=== PATIENT | female | born 1955 | race Two or more races ===

== ENCOUNTER 2024-11-04 13:29 | Inpatient (IN) | payer OTHER ==
[~2024-11-04] VITALS: Ht 157.5 cm; Wt 74.8 kg
[2024-11-04] MEDS ORDERED: AMLODIPINE BESY10 MG PO (14:07)
[2024-11-04] MEDS ORDERED: ATORVASTATIN CA10 MG PO (14:07)
[2024-11-04] MEDS ORDERED: GABAPENTIN300 M2 PO (14:07)
--- NOTE | 2024-11-04 14:10 | NUR ---
PTE ALERTA Y ORIENTADA X3 REIFERE ASTMA, FEMA Y TOS. SE MIDEN S/V Y SE UBICA.
[2024-11-04] MEDS ORDERED: IPRATROPIUM BROMIDE 0.5 MG/2.5 ML AMPUL.NEB IH SCH (16:30)
[2024-11-04] MEDS ORDERED: CEFTRIAXONE SODIUM 1,000 MG VIAL IV ONE (16:30)
[2024-11-04] MEDS ORDERED: LEVALBUTEROL HCL 1.25 MG/3 ML SOLUTION IH SCH (16:30)
[2024-11-04] MEDS ORDERED: MAGNESIUM SULFATE IN WATER 2 GM/50 ML PIGGYBAG IV ONE (16:30)
[2024-11-04] MEDS ORDERED: METHYLPREDNISOLONE SOD SUCC 40 MG VIAL IV ONE (16:30)
[2024-11-04] MEDS ORDERED: FAMOtidine 10 MG/ML (4ML VIAL) IV ONE (16:30)
[2024-11-04] MEDS ORDERED: LEVALBUTEROL HCL 1.25 MG/3 ML SOLUTION IH ONE (16:46)
[2024-11-04] MEDS ORDERED: IPRATROPIUM BROMIDE 0.5 MG/2.5 ML AMPUL.NEB IH ONE (16:47)
[2024-11-04] MEDS ORDERED: METHYLPREDNISOLONE SOD SUCC 40 MG VIAL ONE (16:56)
[2024-11-04] MEDS ORDERED: FAMOTIDINE/PF 20 MG/2 ML VIAL ONE (16:57)
[2024-11-04] MEDS ORDERED: CEFTRIAXONE SODIUM 1,000 MG VIAL ONE (16:57)
[2024-11-04 17:13] LABS: ABG PH 7.476 (7.35-7.45); BICARBONATE 28.9 mmol/l (23-25); SaO2 95.9 %; Tco2 30.1 mmol/l
--- NOTE | 2024-11-04 17:24 | NUR ---
SE ORIENTA PTE SOBRE TX MEDICO EL CUAL REFIERE ENTENDER.SE LE EXTRAEN MUESTRAS BAJO MEDIDAS ASEPTICAS,SE CANALIZA Y SE ADMINISTRA MEDICAMENTOS JARET ORDEN MEDICA.SE NOTIFICAN ABG A MR SCHWARTZ.
[2024-11-04 18:11] LABS: HEMATOCRIT 37.6 % (36.0-45.00); HEMOGLOBIN 12.6 g/dL (12.0-15.00); MEAN CELL VOLUME 89.1 fL (80.00-100.00); MEAN CORPUSCULAR HEMOGLOBIN 29.8 pg (27.00-32.0); MEAN CORPUSCULAR HGB CONC 33.4 g/dl (32.0-36.0); PLATELET COUNT 485 K/uL (150-450); RED BLOOD COUNT 4.22 M/uL (4.00-6.00); RED CELL DISTRIBUTION WIDTH 13.7 % (11.5-14.5)
[2024-11-04 18:13] LABS: URINE APPEARANCE Cloudy; URINE BILIRRUBIN Negative (NEGATIVE); URINE BLOOD Negative; URINE COLOR Dark Yellow; URINE GLUCOSE Negative (NEGATIVE); URINE KETONE Trace (NEGATIVE); URINE LEUKOCYTE Trace; URINE NITRATE Negative; URINE PROTEIN Trace (NEGATIVE)
[2024-11-04 18:17] LABS: URINE BACTERIA 34.2 uL (0.0-1933); URINE EPITHELIAL CELLS 19.9 uL (0.0-38.8); URINE RBC 42.5 uL (0.0-20.8); URINE WBC 10.2 uL (0.0-23.2)
[2024-11-04 18:19] LABS: URINE CAST 0.29 uL (0.0-1.40)
[2024-11-04 18:24] LABS: allen test SATISFACTORY; o2 21 %; puncture site RADIAL RIGHT
[2024-11-04 18:41] LABS: ALBUMIN 3.1 gm/dL (3.4-5.0); BILIRUBIN TOTAL 0.32 mg/dL (0.3-1.2); CALCIUM 9.4 mg/dL (8.5-10.1); CREATININE SERUM 0.67 mg/dL (0.55-1.02); GFR 87.79; GLOBULINA 5.2 G/DL (2.4-3.5); TOTAL PROTEIN 8.3 gm/dL (6.4-8.2)
[2024-11-04 18:49] LABS: POTASSIUM 2.89 mEq/L (3.5-5.1)
[2024-11-04] MEDS ORDERED: POTASSIUM BICARBONATE/CIT AC 25 MEQ TABLET.EFF PO ONE (19:00)
[2024-11-04 22:32] LABS: CALCIUM 9.4 mg/dL (8.5-10.1); CREATININE SERUM 0.77 mg/dL (0.55-1.02); GFR 74.77
[2024-11-04 22:36] LABS: POTASSIUM 2.98 mEq/L (3.5-5.1)
--- NOTE | 2024-11-04 23:00 | NUR ---
SE RECIBE PTE ALERTA ORIENTADA X3 EN MALCOLM CON BARANDAS ELEVADAS POR SEGURIDAD EN COMPANIA DE FAMILIAR.VENOPUNCION PATENTE FRANCISCO J DE EDEMA Y ERITEMA CON H/L #20 EN MANO DERECHA.PENDIENTE CONSULTA MEDICA CON POR DX HYPOKALEMIA.
[2024-11-05] MEDS ORDERED: GUAIFENESIN/DEXTROMETHORPHAN 10ML BLIST.PACK PO ONE ×2 (03:30)
--- NOTE | 2024-11-05 07:32 | NUR ---
SE RECIBE PACIENTE ALERTA Y ORIENTADA X3 EN MALCOLM EN POSICION SEMI SENTADA AL MOMENTO CANALIZADA CON ANGIO #20 SIN IVF. SE MANTIENE BAJO ESPERA DE CONSULTA.
[2024-11-05] MEDS ORDERED: ACETAMINOPHEN 500 MG GEL..CAP PO SCH (08:43)
[2024-11-05] MEDS ORDERED: LEVOTHYROXINE SODIUM 50 MCG TABLET PO SCH (08:45)
[2024-11-05] MEDS ORDERED: SODIUM CHLORIDE 0.45 % 1,000 ML IV SCH ×2 (08:45→10:45)
[2024-11-05] MEDS ORDERED: POTASSIUM CHLORIDE IN WATER 40 MEQ/100 ML PIGGYBAG IV SCH (08:46)
[2024-11-05] MEDS ORDERED: PANTOPRAZOLE SODIUM 40 MG/VIAL VIAL IV SCH ×2 (09:00→10:41)
[2024-11-05] MEDS ORDERED: MAGNESIUM SULFATE IN WATER 2 GM/50 ML PIGGYBAG IV ONE (09:00)
[2024-11-05] MEDS ORDERED: FUROsemide 20 MG/2 ML VIAL IV SCH (09:00)
[2024-11-05] MEDS ORDERED: CEFTRIAXONE SODIUM 1,000 MG VIAL IV SCH (10:41)
[2024-11-05] MEDS ORDERED: ACETAMINOPHEN 500 MG GEL..CAP PO PRN (10:45)
[2024-11-05] MEDS ORDERED: LOSARTAN POTASSIUM 50 MG TABLET PO SCH (12:00)
[2024-11-05] MEDS ORDERED: POTASSIUM CHLORIDE IN WATER 40 MEQ/100 ML PIGGYBAG IV ONE ×3 (13:15→15:31)
[2024-11-05] MEDS ORDERED: CEFTRIAXONE SODIUM 1,000 MG VIAL ONE (15:31)
[2024-11-05] MEDS ORDERED: IPRATROPIUM BROMIDE 0.5 MG/2.5 ML AMPUL.NEB IH SCH (17:00)
[2024-11-05] MEDS ORDERED: GUAIFENESIN 200 MG/10 ML BLIST.PACK PO SCH (18:00)
[2024-11-05] MEDS ORDERED: METHYLPREDNISOLONE SOD SUCC 40 MG VIAL IV SCH (18:00)
[2024-11-05 18:27] VITALS: BP 163/80
[2024-11-05] MEDS ORDERED: POLYETHYLENE GLYCOL 3350 17 GM BLIST.PACK PO SCH ×2 (21:00)
[2024-11-05] MEDS ORDERED: CLONAZEPAM 0.5 MG TABLET PO SCH (21:00)
[2024-11-05] MEDS ORDERED: BUDESONIDE 0.5 MG/2 ML AMPUL.NEB IH SCH (21:00)
[2024-11-05] MEDS ORDERED: GABAPENTIN 300 MG CAPSULE PO SCH (21:00)
[2024-11-05] MEDS ORDERED: ATORVASTATIN CALCIUM 10 MG TABLET PO SCH (21:00)
[2024-11-06 01:54] VITALS: BP 125/67; O2SAT 97
[2024-11-06 06:50] LABS: HEMOGLOBIN 12.5 g/dL (12.0-15.00); MEAN CELL VOLUME 87.7 fL (80.00-100.00); MEAN CORPUSCULAR HEMOGLOBIN 30.5 pg (27.00-32.0); MEAN CORPUSCULAR HGB CONC 34.8 g/dl (32.0-36.0); PLATELET COUNT 586 K/uL (150-450); RED BLOOD COUNT 4.11 M/uL (4.00-6.00); RED CELL DISTRIBUTION WIDTH 14.1 % (11.5-14.5)
[2024-11-06 07:23] LABS: COL EPI 130 SECONDS (82-175)
[2024-11-06 07:43] LABS: ALBUMIN 2.9 gm/dL (3.4-5.0); C-REACTIVE PROTEIN 2.04 MG/DL (0.00-0.29); CALCIUM 9.6 mg/dL (8.5-10.1); CHOL HDL RATIO 3.2 (0-5.0); CREATININE SERUM 0.65 mg/dL (0.55-1.02); GFR 90.91; PHOSPHOROUS 4.1 mg/dL (2.5-4.9); POTASSIUM 4.46 mEq/L (3.5-5.1); TSH 0.299 uIU/mL (0.358-3.74)
[2024-11-06] MEDS ORDERED: AZITHROMYCIN 500 MG VIAL IV ONE (08:17)
[2024-11-06] MEDS ORDERED: AZITHROMYCIN 500 MG VIAL IV SCH (09:00)
[2024-11-06] MEDS ORDERED: AMLODIPINE BESYLATE 10 MG TABLET PO SCH (09:00)
[2024-11-06 09:15] VITALS: BP 141/74
[2024-11-06 11:39] LABS: ABG PH 7.472 (7.35-7.45); ABG pCO2 35.2 mmHg (35-45)
[2024-11-06 11:40] LABS: ABG PO2 73.1 mmHg (80-100); BASE EXCESS 1.9 mmol/l; BICARBONATE 25.1 mmol/l (23-25); SaO2 95.6 %; Tco2 26.2 mmol/l; allen test SATISFACTORY; o2 21 %; puncture site RADIAL LEFT
[2024-11-06 11:43] LABS: PH,URINE 6.5 (5.0-8.0); URINE APPEARANCE Clear; URINE BILIRRUBIN Negative (NEGATIVE); URINE BLOOD Negative; URINE COLOR Yellow; URINE GLUCOSE Negative (NEGATIVE); URINE KETONE Negative (NEGATIVE); URINE LEUKOCYTE Negative; URINE NITRATE Negative; URINE PROTEIN Trace (NEGATIVE); URINE UROBILINOGEN 0.2 E.U./dl
[2024-11-06 11:51] LABS: URINE BACTERIA 9.7 uL (0.0-1933); URINE EPITHELIAL CELLS 12.9 uL (0.0-38.8); URINE RBC 26.2 uL (0.0-20.8); URINE WBC 4.2 uL (0.0-23.2)
[2024-11-06 12:00] LABS: URINE CAST 0.14 uL (0.0-1.40)
[2024-11-06 16:57] VITALS: BP 99/45
[2024-11-06 17:10] VITALS: BP 119/59
[2024-11-07 01:59] VITALS: BP 139/62; O2SAT 97
[2024-11-07] MEDS ORDERED: AZITHROMYCIN 500 MG VIAL IV ONE (08:36)
[2024-11-07 10:11] VITALS: BP 120/55; O2SAT 94
[2024-11-07 13:47] LABS: ob NEGATIVE (NEGATIVE)
[2024-11-07 17:58] VITALS: BP 115/53
[2024-11-08 04:09] VITALS: BP 105/55
[2024-11-08] MEDS ORDERED: AZITHROMYCIN 500 MG VIAL IV ONE (08:16)
[2024-11-08 09:48] VITALS: BP 100/60; O2SAT 100
[2024-11-08] MEDS ORDERED: METHYLPREDNISOLONE SOD SUCC 40 MG VIAL IM SCH (10:12)
[2024-11-08] MEDS ORDERED: Lipitor 10MG TABLET PO (11:40)
[2024-11-08] MEDS ORDERED: AMLODIPINE BESY10 MG PO (11:40)
[2024-11-08] MEDS ORDERED: TUSSIN MUC100 MG/5 M PO (11:41)
[2024-11-08] MEDS ORDERED: GABAPENTIN300 MG PO (11:41)
[2024-11-08] MEDS ORDERED: MOXIFLOXACIN H400 MG PO (11:45)
[2024-11-08] MEDS ORDERED: GILTUSS PO (12:13)
[2024-11-08] MEDS ORDERED: PROTONIX20 MG PO (12:13)
[2024-11-08] MEDS ORDERED: DECADRON PO (12:13)
[2024-11-08] MEDS ORDERED: PANTOPRAZOLE SODIUM 40 MG TABLET.DR PO SCH (21:00)
== END 2024-11-08 14:54 | disposition home or self-care (01) | DRG 202 ==
LOC: ER 13:31 → MEDJ 11-05 09:03 → SEC-K 11-05 09:03 → MEDJ 11-05 15:30 → MEDI 11-08 00:29
PROVIDERS: General Practice; ADMIT Internal Medicine; ATTEND Internal Medicine
PROC: 3E0F7GC Introduction of Other Therapeutic Substance into Respiratory Tract, Via Natural or Artificial Opening (ICD-10-PCS; principal; 2024-11-04)
PROC: B030ZZZ Magnetic Resonance Imaging (MRI) of Brain (ICD-10-PCS; 2024-11-05)
PROC: BB24ZZZ Computerized Tomography (CT Scan) of Bilateral Lungs (ICD-10-PCS; 2024-11-06)
DX: J45.40 Moderate persistent asthma, uncomplicated (principal); J18.0 Bronchopneumonia, unspecified organism; J44.89 Other specified chronic obstructive pulmonary disease; I11.9 Hypertensive heart disease without heart failure; I25.10 Atherosclerotic heart disease of native coronary artery without angina pectoris
CPT/HCPCS: 70551